=== PATIENT | male | born 1960 | race Caucasian/White ===

== ENCOUNTER 2025-01-04 09:34 | Day surgery (SDC) | payer BC ==
[2025-01-04] MEDS: Lactated Ringers 1,000 ML IV SCH (10:50)
[2025-01-04] MEDS ORDERED: fentaNYL 50 MCG/ML SDV ONE (11:01)
[2025-01-04] MEDS ORDERED: Midazolam 1 MG/ML 2 ML SDV ONE (11:01)
[2025-01-04] MEDS ORDERED: Propofol 200 MG/20 ML SDV ONE (11:01)
== END 2025-01-04 13:35 | disposition home or self-care (01) ==
LOC: JP.SDS 09:34
PROVIDERS: ATTEND Surgery
DX: Z12.11 Encounter for screening for malignant neoplasm of colon (principal); K63.5 Polyp of colon; I25.10 Atherosclerotic heart disease of native coronary artery without angina pectoris; I10 Essential (primary) hypertension; E66.9 Obesity, unspecified; E78.00 Pure hypercholesterolemia, unspecified; Z68.30 Body mass index [BMI] 30.0-30.9, adult; Z79.01 Long term (current) use of anticoagulants; Z79.899 Other long term (current) drug therapy; Z85.038 Personal history of other malignant neoplasm of large intestine; Z91.013 Allergy to seafood
CPT/HCPCS: 00811-QZ; J2250; J2704; J3010; J7120